=== PATIENT | female | born 1960 | race Caucasian/White ===

== ENCOUNTER 2019-09-15 05:16 | Day surgery (SDC) | payer OTHER ==
[~2019-09-15] VITALS: Ht 160 cm; Wt 72.7 kg
--- NOTE | ~2019-09-15 | OP ---
PATIENT NAME: NIKOLE SERRA MEDICAL RECORD: [id number] :60 LOCATION:[id number] ADMISSION DATE: SURGEON: MICHEAL MASON MD DATE OF OPERATION: 09/15/2019 PREOPERATIVE DIAGNOSES: 1. Hiatal hernia. 2. Jackhammer esophagus. 3. Gastroesophageal reflux disease. 4. Hypercholesterolemia. POSTOPERATIVE DIAGNOSES: 1. Hiatal hernia. 2. Jackhammer esophagus. 3. Gastroesophageal reflux disease. 4. Hypercholesterolemia. PROCEDURE: Laparoscopic hiatal hernia repair with Josue fundoplication. SURGEON: Micheal Mason MD REPORT OF PROCEDURE: The patient's abdomen was prepped and draped in sterile fashion. A Veress needle was inserted in the left upper quadrant and the abdomen was insufflated. An 11-mm Visiport trocar was then inserted in the midline just above the umbilicus. I could see the Veress needle and there was no sign of any injury to bowel or surrounding structures. An 11-mm trocar was placed in the left subcostal region, a 5-mm trocar was placed in the epigastrium, a 5-mm trocar was placed in the left lateral abdomen and a final 5-mm trocar was placed in the right lateral subcostal region. A liver retractor was inserted and used to elevate the left lobe of the liver. The patient had a clear hiatal hernia with the top third of the stomach presenting up into the thoracic cavity. We began our dissection on the lesser omentum, which was taken down using Harmonic scalpel. We continued this dissection to the right side of the right ember. We then scored the peritoneum on this right side of the right ember and began taking down the hernia sac from the patient's thoracic cavity. We continued this dissection as far anteriorly and posteriorly as possible. We then went to the greater curvature of the stomach and began taking down the short gastrics on the upper third of the stomach using Harmonic scalpel. We continued this to the left side of the right ember and again scored the peritoneum and then began taking down the hernia sac from the thoracic cavity. Once we had this completely freed up, then we were able to get a 360-degree inspection of the patient's esophagus. I could see the vagus nerves and they appeared to be intact. We freed up as much of the tissue as we could up into the chest until we had the stomach resting comfortably in the abdominal cavity with 1-2 cm of esophagus present. We then reapproximated the diaphragmatic hiatus with interrupted 0 Polydeks times 3. There was good approximation of the tissue and there did not appear to be any tension or bleeding. We then performed a 360-degree posterior wrap of the fundus of the stomach around the distal esophagus. This was performed with interrupted 0 Polydeks times 3 with the top and the bottom suture incorporating a bite of the esophagus. The wrap appeared to be in good position and again there was no sign of any bleeding. We then irrigated out the abdomen and assured there was no sign of any active bleeding, which there was none. The liver retractor was then removed. The 11-mm trocar site fascias were closed with interrupted 0 Vicryls using a Dutch-Antonio suture passer device. We then infused a total of 10 mL of 0.25% OPERATIVE REPORT [id number] NIKOLE SERRA Marcaine with epinephrine to all of the incision sites and then closed the incisions with subcutaneous 5-0 Monocryl. COMPLICATIONS: None. CONDITION: Stable. ANESTHESIA: General endotracheal and local. BLOOD LOSS: Minimal. TRANSINT:[id number] Voice Confirmation ID: [id number] DOCUMENT ID: [id number] MICHEAL MASON MD CC: TALITA SHARMA MD and SHANTE BELLO DO [id number] DICTATION DATE: 09/15/1940 BAKERY TECHNICIAN: 09/15/19 1551 [facility] [address] [place] [place] [id number]
[2019-09-15 05:39] LABS: BASOPHILS 0.2 % (0-2); EOSINOPHILS 2.2 % (0-7); HEMATOCRIT 45.9 % (36.0-48.0); HEMOGLOBIN 15.8 g/dL (12-16); IMMATURE GRANULOCYTES 0.2 % (0-5); LYMPHOCYTES 29.9 % (15-50); MCHC 34.4 g/dL (31.0-37.0); MCV 95.8 fL (80.0-100.0); MEAN PLATELET VOLUME 9.6 fL (7.4-10.4); NEUTROPHILS 58.5 % (40-80); PLATELET COUNT 328 10x3/uL (130-400); RBC 4.79 10x6/uL (4.00-5.40); WBC 8.7 10x3/uL (4.8-10.8)
[2019-09-15 06:02] LABS: ANION GAP 10.9 mmol/L (8-16); CALCIUM 9.2 mg/dL (8.5-10.1); CARBON DIOXIDE 27.9 mmol/L (21.0-32.0); POTASSIUM - SERUM 3.8 mmol/L (3.5-5.1)
[2019-09-15] MEDS ORDERED: NEURONTIN 300300 MG (06:25)
[2019-09-15] MEDS ORDERED: SYNTHROID112 MCG PO (06:25)
[2019-09-15] MEDS ORDERED: WELLBUTRIN XL150 M1 PO (06:26)
[2019-09-15] MEDS ORDERED: AZELASTINE137 MCG/0. NASAL (06:27)
[2019-09-15] MEDS ORDERED: LIPITOR40 MG PO (06:27)
[2019-09-15] MEDS ORDERED: CELEXA40 MG PO (06:28)
[2019-09-15] MEDS ORDERED: TRAZODONE HCL150 MG PO (06:28)
[2019-09-15] MEDS ORDERED: NEXIUM40 MG (06:29)
[2019-09-15] MEDS ORDERED: LINZESS145 MCG PO (06:29)
[2019-09-15] MEDS ORDERED: FEXOFENADINE H180 MG PO (06:30)
[2019-09-15] MEDS ORDERED: NAPROSYN500 MG PO (06:31)
[2019-09-15 06:44] VITALS: BP 113/69; BMI 28.4
[2019-09-15 10:55] VITALS: BP 152/84
[2019-09-15 11:06] VITALS: BP 152/89; Ht 160 cm; Wt 72.7 kg
[2019-09-16 04:00] VITALS: BP 107/54
[2019-09-16 06:35] LABS: BASOPHILS 0.1 % (0-2); EOSINOPHILS 0 % (0-7); HEMATOCRIT 40.2 % (36.0-48.0); HEMOGLOBIN 12.8 g/dL (12-16); IMMATURE GRANULOCYTES 0.2 % (0-5); LYMPHOCYTES 15.9 % (15-50); MCH 31.8 pg (26.0-34.0); MCHC 31.8 g/dL (31.0-37.0); MEAN PLATELET VOLUME 9.9 fL (7.4-10.4); MONOCYTES 8.3 % (2-11); NEUTROPHILS 75.5 % (40-80); PLATELET COUNT 305 10x3/uL (130-400); RBC 4.03 10x6/uL (4.00-5.40); RDW 14.6 % (11.5-14.5)
[2019-09-16 06:44] LABS: MCV 99.8 fL (80.0-100.0); WBC 13.3 10x3/uL (4.8-10.8)
[2019-09-16 06:54] LABS: CALC OSMOLALITY 281 mosm/kg (275-300); CALCIUM 8.6 mg/dL (8.5-10.1); CARBON DIOXIDE 32.8 mmol/L (21.0-32.0); CHLORIDE - SERUM 105 mmol/L (98-107); CREATININE - SERUM 0.8 mg/dL (0.6-1.3); GLUCOSE 94 mg/dL (74-106); MAGNESIUM - SERUM 1.8 mg/dL (1.8-2.4); PHOSPHOROUS 3.1 mg/dL (2.5-4.9); POTASSIUM - SERUM 4.3 mmol/L (3.5-5.1); SODIUM 142 mmol/L (136-145); eGFR NON AFRICAN AMERICAN 78 mL/min (90-120)
[2019-09-16 06:55] LABS: UREA NITROGEN 9 mg/dL (7-18)
[2019-09-16 09:18] VITALS: BP 93/41
[2019-09-16] MEDS ORDERED: HYDROCODON-ACE1 EA10 PO (12:43)
[2019-09-16] MEDS ORDERED: REGLAN5 MG PO (12:44)
[2019-09-16 13:06] VITALS: BP 116/57
[2019-09-16 16:56] VITALS: BP 132/71
== END 2019-09-16 17:39 | disposition home or self-care (01) ==
LOC: D.MS 05:16 → D.OPS 05:16 → D.PAN 08:45 → D.OPS 08:45 → D.MS 10:13 → D.OPS 09-16 17:39
PROVIDERS: ATTEND Surgery
DX: K44.9 Diaphragmatic hernia without obstruction or gangrene (principal); K22.8 Other specified diseases of esophagus; K21.9 Gastro-esophageal reflux disease without esophagitis; E78.00 Pure hypercholesterolemia, unspecified; R47.02 Dysphasia

== ENCOUNTER → 2019-10-30 08:59 | Outpatient (CLI) | payer OTHER ==
[2019-09-15 11:06] VITALS: BMI 28.4
[~2019-10-30 08:59] MED LIST: AZELASTINE137 MCG/0. NASAL; CELEXA40 MG PO; FEXOFENADINE H180 MG PO; HYDROCODON-ACE1 EA10 PO; LINZESS145 MCG PO; LIPITOR40 MG PO; NAPROSYN500 MG PO; NEURONTIN 300300 MG; NEXIUM40 MG; REGLAN5 MG PO; SYNTHROID112 MCG PO; TRAZODONE HCL150 MG PO; WELLBUTRIN XL150 M1 PO
== END | disposition home or self-care (01) ==
LOC: D.RAD 08:59
PROVIDERS: ATTEND Surgery
DX: R13.10 Dysphagia, unspecified (principal)

== ENCOUNTER → 2020-02-08 15:26 | Outpatient (CLI) | payer OTHER ==
[2019-09-15 11:06] VITALS: BMI 28.4
== END | disposition home or self-care (01) ==
LOC: D.LAB 15:26
PROVIDERS: ATTEND Internal Medicine Gastroenterology
DX: K59.00 Constipation, unspecified (principal); R10.84 Generalized abdominal pain; R19.4 Change in bowel habit